=== PATIENT | female | born 1940 | race Caucasian/White ===

== ENCOUNTER 2021-11-08 19:24 | Emergency (ER) | payer MEDICARE, OTHER ==
[~2021-11-08] VITALS: Ht 154.9 cm; Wt 49.9 kg
[2021-11-08] MEDS ORDERED: POTASSIUM BICARBONATE/CIT AC 25 MEQ TABLET.EFF PO ONE ×2 (19:30→21:45)
[2021-11-08] MEDS ORDERED: ENOXAPARIN SODIUM 60 MG/0.6 ML DISP.SYRIN SQ ONE ×2 (19:30→19:40)
[2021-11-08] MEDS ORDERED: DILTIAZEM HCL 25 MG IV IV ONE ×5 (19:30→22:15)
[2021-11-08] MEDS ORDERED: POTASSIUM BICARBONATE/CIT AC 25 MEQ TABLET.EFF ONE ×2 (19:39→21:43)
[2021-11-08] MEDS ORDERED: MAGNESIUM SULFATE/D5W 200 ML ONE (19:40)
[2021-11-08] MEDS ORDERED: DILTIAZEM HCL 25 MG IV ONE ×5 (19:40→22:17)
[2021-11-08 19:55] LABS: HEMATOCRIT 33.2 % (31.2-41.9); MEAN CORPUSCULAR HEMOGLOBIN 28.3 uug (24.7-32.8); MEAN CORPUSCULAR VOLUME 87.2 fL (75.5-95.3); PLATELET COUNT (AUTO) 253 K/uL (179-408)
[2021-11-08 20:12] LABS: ALANINE AMINOTRANSFERASE 13 U/L (14-59); ALKALINE PHOSPHATASE 97 U/L (50-136); ASPARTATE AMINOTRANSFERASE 20 U/L (15-37); BILIRUBIN,DIRECT 0.1 mg/dL (0.0-0.2); BILIRUBIN,TOTAL 0.1 mg/dL (0.2-1.0); CARBON DIOXIDE 25 mmol/L (21-32); CHLORIDE 105 mmol/L (98-107); CREATININE 1.3 mg/dL (0.6-1.3); GLUCOSE 154 mg/dL (74-106); POTASSIUM 3.3 mmol/L (3.5-5.1); TOTAL PROTEIN, SERUM 7.3 g/dL (6.4-8.2); UREA NITROGEN, BLOOD 33 mg/dL (7-18)
[2021-11-08] MEDS: MAGNESIUM SULFATE/D5W 100 ML IV SCH ×2 (20:12→20:28)
[2021-11-08] MEDS ORDERED: IV NS 1000 ML 1,000 ML IV ONE (20:15)
[2021-11-08 20:42] LABS: THYROID STIMULATING HORMONE 0.438 mIU/mL (0.358-3.740)
--- NOTE | 2021-11-08 21:00 | NUR ---
Pt resting in bed, accompoanied by brother. Denies CP or SOB. No distress noted. Able to make needs known.
[2021-11-08] MEDS ORDERED: OXYCODONE/APAP 5-325 MG TABLET PO ONE (22:15)
[2021-11-08] MEDS ORDERED: OXYCODONE/APAP 5-325 MG TABLET ONE (22:16)
--- NOTE | 2021-11-08 22:40 | NUR ---
Pt converted to ST around 6H
[2021-11-09 01:02] VITALS: BP 129/56
--- NOTE | 2021-11-09 01:02 | NUR ---
Patient discharged to home in stable condition. Written and verbal after care instructions given. Patient verbalizes understanding of instructions. Stressed follow up or return to ER for worsening s/s.
== END 2021-11-09 01:03 | disposition home or self-care (01) ==
LOC: ER 19:26
DX: D46.4 Refractory anemia, unspecified (principal); I48.91 Unspecified atrial fibrillation; E87.6 Hypokalemia; E03.9 Hypothyroidism, unspecified; Z88.2 Allergy status to sulfonamides
CPT/HCPCS: 99285; 96365; 96375; 87426; 80076; 80048; 83550; 83735; 84443; 85025; 85044; 85379; 85730; 84484; 36415; 93005 ×2; 96376; 96372; J3490 ×5; J1650; J3475; J7040; 70030-TC; A4663

== ENCOUNTER 2022-07-09 17:18 | Emergency (ER) | payer OTHER ==
[~2022-07-09] VITALS: Ht 154.9 cm; Wt 49.9 kg
--- NOTE | 2022-07-09 19:15 | NUR ---
Received report from Esha AMBRIZ.
--- NOTE | 2022-07-09 20:17 | NUR ---
Called [employer] for a ride for patient. Recied ETA of 15-20min.
--- NOTE | 2022-07-09 20:30 | NUR ---
[facility] arrived to [facility] pick[facility] patient. Patient placed in taxi with anil. Patient discharged to home in stable condition. Written and verbal after care instructions given. Patient verbalizes understanding of instructions. Stressed follow up or return to ER for worsening s/s.
[2022-07-10 01:13] VITALS: BP 125/77
== END 2022-07-09 20:45 | disposition home or self-care (01) ==
LOC: ER 17:21
DX: S83.91XA Sprain of unspecified site of right knee, initial encounter (principal); E03.9 Hypothyroidism, unspecified; Z88.2 Allergy status to sulfonamides; W01.0XXA Fall on same level from slipping, tripping and stumbling without subsequent striking against object, initial encounter; Y93.89 Activity, other specified; Y92.89 Other specified places as the place of occurrence of the external cause; Y99.8 Other external cause status
CPT/HCPCS: A4663